=== PATIENT | male | born 1980 | race Two or more races ===

== ENCOUNTER 2023-02-01 10:45 | Inpatient (IN) | payer MEDICAID, OTHER ==
[~2023-02-01] VITALS: Ht 175.3 cm; Wt 200.0 kg
[2023-02-01 11:24] LABS: Hematocrit 43.4 % (41.0-53.0); Hemoglobin 13.8 g/dL (13.5-17.5); Mean Corpuscular Hemoglobin 29.5 pg (28.0-32.0); Mean Corpuscular Hgb Conc. 31.7 g/dL (32.0-36.0); Mean Corpuscular Volume 93.3 fL (80.0-100.0); Red Blood Cells 4.66 10^6/uL (4.5-5.90); Red Cell Distribution Width 16.2 % (11.8-14.3); White Blood Cell 16.9 10^3/uL (4.4-10.8)
[2023-02-01 12:08] LABS: Albumin 2.8 g/dL (3.4-5.0); Calcium 8.2 mg/dL (8.5-10.1); Potassium 4.6 mmol/L (3.5-5.1)
[2023-02-01 12:09] LABS: Basophils % (manual) 0 (0.0-2.0); Blast Cells 0; Eosinophils % (manual) 0 (0-7); Metamyelocytes % 0; Myelocytes % 0; Promyelocytes % 0; Reactive Lymphocytes 0
[2023-02-01 12:12] LABS: BUN/Creatinine Ratio 31.4 (10.0-20.0); Bilirubin, Total 0.2 mg/dL (0.2-1.0); Total Protein 6.4 g/dL (6.4-8.2)
[2023-02-01] MEDS ORDERED: FUROSEMIDE 100 MG/10ML VIAL IV ONE (12:15)
[2023-02-01 12:35] LABS: Band Neutrophils % (manual) 2; Lymphocytes % (manual) 22 (10.0-50.0); Monocytes % (manual) 4 (0-12)
[2023-02-01 13:00] LABS: Urine Bacteria NONE SEEN /hpf (None Seen); Urine Blood Negative /uL (Negative); Urine WBC <1 /hpf (0 - 3)
[2023-02-01] MEDS ORDERED: LORazepam 2MG/ML-1ML VIAL IV PRN (14:45)
[2023-02-01 16:52] VITALS: BP 171/80
[2023-02-01] MEDS: FUROSEMIDE 20 MG/2 ML VIAL IV SCH (18:00)
[2023-02-01] MEDS: ALBUTEROL SULF 2.5 MG/0.5ML(0.5%) NEB SOLN NEB SCH ×2 (18:21→22:00)
[2023-02-01] MEDS: IPRATROPIUM BROM 0.5 MG/2.5ML INH SOL NEB SCH ×2 (18:21→22:00)
[2023-02-01] MEDS ORDERED: LORA-1123 PO (18:33)
[2023-02-01] MEDS ORDERED: METO25TA93 PO (18:33)
[2023-02-01] MEDS ORDERED: FLUO-125 PO (18:33)
[2023-02-01] MEDS ORDERED: KEP500T PO (18:33)
[2023-02-01] MEDS ORDERED: DIVA250T12 PO (18:33)
[2023-02-01] MEDS ORDERED: FURO40TA4 PO (18:33)
[2023-02-01] MEDS ORDERED: LEV100T PO (18:33)
[2023-02-01] MEDS ORDERED: QUET50TA27 PO (18:46)
[2023-02-01] MEDS ORDERED: PRED20TA2 PO ×2 (18:46→19:02)
[2023-02-01] MEDS ORDERED: TOPI50TA53 PO (18:48)
[2023-02-01] MEDS ORDERED: TRAZ-227 PO (18:49)
[2023-02-01] MEDS ORDERED: QUET100T47 PO (18:54)
[2023-02-01] MEDS ORDERED: LEVO88TA4 PO (19:03)
[2023-02-01] MEDS: ATORVASTATIN 20 MG TAB PO SCH (22:09)
[2023-02-01] MEDS: METOPROLOL TARTRATE 25 MG TAB PO SCH (22:10)
[2023-02-01 23:00] VITALS: BP 119/59
[2023-02-02] VITALS (7 sets, daily range): BP systolic 96–123; BP diastolic 58–82
[2023-02-02] MEDS: ALBUTEROL SULF 2.5 MG/0.5ML(0.5%) NEB SOLN NEB SCH ×6 (02:00→21:37)
[2023-02-02] MEDS: IPRATROPIUM BROM 0.5 MG/2.5ML INH SOL NEB SCH ×6 (02:00→21:37)
[2023-02-02] MEDS: FUROSEMIDE 20 MG/2 ML VIAL IV SCH ×2 (06:04→17:43)
[2023-02-02 06:24] LABS: Albumin 2.7 g/dL (3.4-5.0); Calcium 8.4 mg/dL (8.5-10.1); Potassium 4.2 mmol/L (3.5-5.1)
[2023-02-02 06:25] LABS: BUN/Creatinine Ratio 31.8 (10.0-20.0)
[2023-02-02 06:29] LABS: Bilirubin, Total 0.4 mg/dL (0.2-1.0); Total Protein 6.8 g/dL (6.4-8.2)
[2023-02-02 06:50] LABS: Hematocrit 42.9 % (41.0-53.0); Hemoglobin 13.5 g/dL (13.5-17.5); Mean Corpuscular Hemoglobin 29.2 pg (28.0-32.0); Mean Corpuscular Hgb Conc. 31.4 g/dL (32.0-36.0); Red Blood Cells 4.61 10^6/uL (4.5-5.90); Red Cell Distribution Width 16.3 % (11.8-14.3); White Blood Cell 20.8 10^3/uL (4.4-10.8)
[2023-02-02 07:09] LABS: Basophils % (manual) 0 (0.0-2.0); Blast Cells 0; Eosinophils % (manual) 0 (0-7); Myelocytes % 0; Promyelocytes % 0
[2023-02-02 08:38] LABS: Band Neutrophils % (manual) 5; Lymphocytes % (manual) 19 (10.0-50.0); Metamyelocytes % 1; Monocytes % (manual) 5 (0-12); Reactive Lymphocytes 3
[2023-02-02] MEDS: ASPirin 81 mg TAB PO SCH (08:46)
[2023-02-02] MEDS: METOPROLOL TARTRATE 25 MG TAB PO SCH ×2 (08:46→21:36)
[2023-02-02] MEDS ORDERED: OPTISON 3ml Vial for INJ IV ONE (11:00)
[2023-02-02] MEDS: ATORVASTATIN 20 MG TAB PO SCH (21:34)
[2023-02-03] MEDS: ALBUTEROL SULF 2.5 MG/0.5ML(0.5%) NEB SOLN NEB SCH ×6 (01:26→22:15)
[2023-02-03] MEDS: IPRATROPIUM BROM 0.5 MG/2.5ML INH SOL NEB SCH ×6 (01:26→22:15)
[2023-02-03 05:00] VITALS: BP 134/77
[2023-02-03] MEDS: FUROSEMIDE 20 MG/2 ML VIAL IV SCH ×2 (06:13→17:49)
[2023-02-03 06:22] LABS: Calcium 8.8 mg/dL (8.5-10.1); Potassium 3.6 mmol/L (3.5-5.1)
[2023-02-03 06:23] LABS: Hematocrit 41.5 % (41.0-53.0); Hemoglobin 13.4 g/dL (13.5-17.5); Mean Corpuscular Hemoglobin 30.2 pg (28.0-32.0); Mean Corpuscular Hgb Conc. 32.4 g/dL (32.0-36.0); Mean Corpuscular Volume 93.2 fL (80.0-100.0); Red Blood Cells 4.45 10^6/uL (4.5-5.90); Red Cell Distribution Width 16.1 % (11.8-14.3); White Blood Cell 17.8 10^3/uL (4.4-10.8)
[2023-02-03 06:35] LABS: Basophils % (manual) 0 (0.0-2.0); Blast Cells 0; Metamyelocytes % 0; Myelocytes % 0; Promyelocytes % 0
[2023-02-03 06:37] LABS: BUN/Creatinine Ratio 30.4 (10.0-20.0)
[2023-02-03 09:00] VITALS: BP 126/86
[2023-02-03 09:05] LABS: Band Neutrophils % (manual) 4; Eosinophils % (manual) 1 (0-7); Monocytes % (manual) 7 (0-12)
[2023-02-03 09:09] LABS: Lymphocytes % (manual) 19 (10.0-50.0); Reactive Lymphocytes 2
[2023-02-03] MEDS: METOPROLOL TARTRATE 25 MG TAB PO SCH ×2 (10:05→21:11)
[2023-02-03] MEDS: ASPirin 81 mg TAB PO SCH (10:05)
[2023-02-03] MEDS ORDERED: PRED20TA2 PO ×2 (11:14)
[2023-02-03] MEDS ORDERED: LEVO750T8 PO ×2 (11:15)
[2023-02-03 13:10] VITALS: BP 128/80
[2023-02-03 16:43] VITALS: BP 119/76
[2023-02-03] MEDS: ATORVASTATIN 20 MG TAB PO SCH (21:12)
[2023-02-03 22:00] VITALS: BP 129/75
[2023-02-04] VITALS (7 sets, daily range): BP systolic 118–142; BP diastolic 71–91
[2023-02-04] MEDS: ALBUTEROL SULF 2.5 MG/0.5ML(0.5%) NEB SOLN NEB SCH ×6 (02:13→22:15)
[2023-02-04] MEDS: IPRATROPIUM BROM 0.5 MG/2.5ML INH SOL NEB SCH ×6 (02:13→22:15)
[2023-02-04] MEDS: FUROSEMIDE 20 MG/2 ML VIAL IV SCH ×2 (06:21→17:53)
[2023-02-04 06:29] LABS: Hemoglobin 13.3 g/dL (13.5-17.5); Mean Corpuscular Hemoglobin 29.3 pg (28.0-32.0); Mean Corpuscular Hgb Conc. 31.8 g/dL (32.0-36.0); Mean Corpuscular Volume 92.1 fL (80.0-100.0); Red Blood Cells 4.56 10^6/uL (4.5-5.90); Red Cell Distribution Width 16.2 % (11.8-14.3)
[2023-02-04 06:54] LABS: Basophils % (manual) 0 (0.0-2.0); Blast Cells 0; Eosinophils % (manual) 0 (0-7); Metamyelocytes % 0; Promyelocytes % 0; Reactive Lymphocytes 0
[2023-02-04 06:56] LABS: Potassium 3.4 mmol/L (3.5-5.1)
[2023-02-04 07:05] LABS: BUN/Creatinine Ratio 26.1 (10.0-20.0); Calcium 8.7 mg/dL (8.5-10.1)
[2023-02-04 09:00] LABS: Band Neutrophils % (manual) 2; Lymphocytes % (manual) 21 (10.0-50.0); Monocytes % (manual) 7 (0-12); Myelocytes % 1
[2023-02-04] MEDS: METOPROLOL TARTRATE 25 MG TAB PO SCH ×2 (09:32→21:34)
[2023-02-04] MEDS: ASPirin 81 mg TAB PO SCH (09:32)
[2023-02-04 10:13] LABS: Hepatitis C Antibody Negative (Negative)
[2023-02-04] MEDS: ATORVASTATIN 20 MG TAB PO SCH (21:34)
== END 2023-02-04 23:45 | disposition home or self-care (01) | DRG 194 ==
LOC: ER 10:45 → TELE 14:42 → TELE-WESTW 21:29
PROVIDERS: ADMIT Nurse Practitioner Family; ATTEND Internal Medicine Pulmonary Disease
DX: I50.33 Acute on chronic diastolic (congestive) heart failure (principal); J96.21 Acute and chronic respiratory failure with hypoxia; N17.9 Acute kidney failure, unspecified; E44.1 Mild protein-calorie malnutrition; J45.901 Unspecified asthma with (acute) exacerbation; Z68.44 Body mass index [BMI] 60.0-69.9, adult; R56.9 Unspecified convulsions; E66.01 Morbid (severe) obesity due to excess calories; D72.829 Elevated white blood cell count, unspecified; Z79.899 Other long term (current) drug therapy; Z86.16 Personal history of COVID-19; Z88.0 Allergy status to penicillin; Z74.01 Bed confinement status; Z87.01 Personal history of pneumonia (recurrent)
CPT/HCPCS: 36415; 36600; 70450; 71045; 80048; 80053; 80164; 81001; 82805; 83880; 84484; 85007; 85027; 86803; 87340; 93005; 93306; 94640; 96374; G0378; Q9956

== ENCOUNTER 2023-03-02 12:41 | Inpatient (IN) | payer MEDICAID ==
[2023-03-02] VITALS (7 sets, daily range): BP systolic 132–146; BP diastolic 80–107; PULSE 89–102; RESP 15–53; O2SAT 89–94
[~2023-03-02] VITALS: Ht 182.9 cm; Wt 215.1 kg
[~2023-03-02 12:41] MED LIST: DIVA250T12 PO; FLUO-125 PO; FURO40TA4 PO; KEP500T PO; LEVO88TA4 PO; LORA-1123 PO; METO25TA93 PO; QUET100T47 PO; TOPI50TA53 PO; TRAZ-227 PO
[2023-03-02 14:51] LABS: Hematocrit 39.1 % (41.0-53.0); Hemoglobin 12.2 g/dL (13.5-17.5); Mean Corpuscular Hemoglobin 29.7 pg (28.0-32.0); Mean Corpuscular Hgb Conc. 31.1 g/dL (32.0-36.0); Mean Corpuscular Volume 95.3 fL (80.0-100.0); Red Cell Distribution Width 16.1 % (11.8-14.3); White Blood Cell 17.1 10^3/uL (4.4-10.8)
[2023-03-02 14:53] LABS: Basophils % (manual) 0 (0.0-2.0); Blast Cells 0; Eosinophils % (manual) 0 (0-7); Promyelocytes % 0; Reactive Lymphocytes 0
[2023-03-02 15:08] LABS: Albumin 2.6 g/dL (3.4-5.0); Band Neutrophils % (manual) 9; Calcium 8.4 mg/dL (8.5-10.1); Lymphocytes % (manual) 4 (10.0-50.0); Magnesium 2.3 mg/dL (1.6-2.6); Metamyelocytes % 3; Monocytes % (manual) 7 (0-12); Myelocytes % 1; Potassium 4.7 mmol/L (3.5-5.1)
[2023-03-02 15:11] LABS: BUN/Creatinine Ratio 19.5 (10.0-20.0); Bilirubin, Total 0.2 mg/dL (0.2-1.0); Total Protein 6.5 g/dL (6.4-8.2)
[2023-03-02] MEDS ORDERED: FUROSEMIDE 40 MG/4 ML VIAL IV ONE (15:30)
[2023-03-02] MEDS ORDERED: ACETAMINOPHEN 325 MG TAB PO PRN (16:15)
[2023-03-02] MEDS ORDERED: HYDROcodone-ACET 5/325MG TAB PO PRN (16:15)
[2023-03-02] MEDS ORDERED: DOCUSATE SOD 100 MG CAP PO PRN (16:15)
[2023-03-02] MEDS ORDERED: ONDANSETRON HCL 4 MG/2 ML VIAL IV PRN (16:15)
[2023-03-02] MEDS: ALBUTEROL SULF 2.5 MG/0.5ML(0.5%) NEB SOLN NEB SCH (18:16)
[2023-03-02] MEDS: IPRATROPIUM BROM 0.5 MG/2.5ML INH SOL NEB SCH (18:16)
[2023-03-02] MEDS: cefTRIAXone 1GM/50ML D5W 50 ML IV SCH (18:21)
[2023-03-02] MEDS: FUROSEMIDE 40 MG/4 ML VIAL IV SCH (18:21)
[2023-03-02] MEDS: SODIUM CHLOR 0.9% PF (SALINE LOCK) 10ML VIAL/SYR IV SCH (22:10)
[2023-03-03] VITALS (14 sets, daily range): BP systolic 118–144; BP diastolic 61–96; PULSE 85–119; RESP 16–22; TEMP 98.2–98.6; O2SAT 83–99
[2023-03-03] MEDS: IPRATROPIUM BROM 0.5 MG/2.5ML INH SOL NEB SCH ×4 (06:33→19:25)
[2023-03-03] MEDS: ALBUTEROL SULF 2.5 MG/0.5ML(0.5%) NEB SOLN NEB SCH ×4 (06:33→19:25)
[2023-03-03] MEDS: FUROSEMIDE 40 MG/4 ML VIAL IV SCH ×2 (06:41→19:02)
[2023-03-03] MEDS: SODIUM CHLOR 0.9% PF (SALINE LOCK) 10ML VIAL/SYR IV SCH ×3 (06:41→22:00)
[2023-03-03 10:50] LABS: Urine Bacteria NONE SEEN /hpf (None Seen); Urine Blood Negative /uL (Negative); Urine Specific Gravity 1.007 (1.001-1.035); Urine WBC <1 /hpf (0 - 3)
[2023-03-03] MEDS: cefTRIAXone 1GM/50ML D5W 50 ML IV SCH (11:36)
[2023-03-03] MEDS: ENOXAPARIN SOD 40 MG/0.4 ML SYRINGE SC SCH (11:36)
[2023-03-03 13:30] LABS: Albumin 2.6 g/dL (3.4-5.0); Calcium 8.8 mg/dL (8.5-10.1); Potassium 3.7 mmol/L (3.5-5.1)
[2023-03-03 13:31] LABS: Basophils # (auto) 0.1 10 ^3/uL (0-0.2); Basophils % (auto) 0.8 % (0.0-2.0); Eosinophils # (auto) 0.1 10 ^3/uL (0-0.8); Eosinophils % (auto) 0.3 % (0.0-7.0); Hematocrit 39.7 % (41.0-53.0); Hemoglobin 12.6 g/dL (13.5-17.5); Lymphocytes # (auto) 2.9 10 ^3/uL (0.4-5.4); Lymphocytes % (auto) 17.5 % (10.0-50.0); Mean Corpuscular Hemoglobin 29.5 pg (28.0-32.0); Mean Corpuscular Hgb Conc. 31.7 g/dL (32.0-36.0); Monocytes % (auto) 5.9 % (0.0-12.0); Neutrophils # (auto) 12.7 10 ^3/uL (1.6-8.6); Neutrophils % (auto) 75.5 % (37.0-80.0); Nucleated Red Blood Cells % 0.2 %; Red Blood Cells 4.27 10^6/uL (4.5-5.90); Red Cell Distribution Width 16.2 % (11.8-14.3); White Blood Cell 16.8 10^3/uL (4.4-10.8)
[2023-03-03 13:34] LABS: BUN/Creatinine Ratio 18.4 (10.0-20.0); Bilirubin, Total 0.4 mg/dL (0.2-1.0); Total Protein 7.2 g/dL (6.4-8.2)
[2023-03-03] MEDS ORDERED: PRED20TA2 PO (22:02)
[2023-03-03] MEDS ORDERED: CLON1TAB PO (22:02)
[2023-03-04] VITALS (13 sets, daily range): BP systolic 106–140; BP diastolic 60–82; PULSE 90–107; RESP 17–20; TEMP 97.9–98.7; O2SAT 92–100
[2023-03-04] MEDS: IPRATROPIUM BROM 0.5 MG/2.5ML INH SOL NEB SCH ×5 (00:49→19:00)
[2023-03-04] MEDS: ALBUTEROL SULF 2.5 MG/0.5ML(0.5%) NEB SOLN NEB SCH ×5 (00:50→19:00)
[2023-03-04] MEDS: SODIUM CHLOR 0.9% PF (SALINE LOCK) 10ML VIAL/SYR IV SCH ×3 (05:52→22:25)
[2023-03-04] MEDS: FUROSEMIDE 40 MG/4 ML VIAL IV SCH ×2 (06:54→18:59)
[2023-03-04] MEDS: cefTRIAXone 1GM/50ML D5W 50 ML IV SCH (09:52)
[2023-03-04] MEDS: ENOXAPARIN SOD 40 MG/0.4 ML SYRINGE SC SCH (09:52)
[2023-03-04] MEDS ORDERED: DIVA500T13 PO (21:05)
[2023-03-04] MEDS ORDERED: DIVA250T12 PO (21:05)
[2023-03-04] MEDS ORDERED: TRAZ-227 PO (21:06)
[2023-03-04] MEDS: FLUoxetine HCL 20 MG CAP PO SCH (23:13)
[2023-03-04] MEDS: traZODone HCL 50 MG TAB PO SCH (23:13)
[2023-03-04] MEDS: levETIRAcetam 500 MG TAB PO SCH (23:13)
[2023-03-04] MEDS: QUEtiapine FUMARATE 100 MG TAB PO SCH (23:13)
[2023-03-04] MEDS: TOPIRAMATE 25 MG TAB PO SCH (23:14)
[2023-03-04] MEDS: clonazePAM 0.5 MG TAB PO SCH (23:14)
[2023-03-05] VITALS (17 sets, daily range): BP systolic 107–134; BP diastolic 56–79; PULSE 88–119; RESP 16–20; TEMP 97.4–98.9; O2SAT 90–100
[2023-03-05] MEDS: FUROSEMIDE 40 MG/4 ML VIAL IV SCH ×2 (06:33→18:39)
[2023-03-05] MEDS: LEVOTHYROXINE SODIUM 88 MCG TAB PO SCH (06:34)
[2023-03-05] MEDS: SODIUM CHLOR 0.9% PF (SALINE LOCK) 10ML VIAL/SYR IV SCH ×3 (06:36→21:55)
[2023-03-05] MEDS: IPRATROPIUM BROM 0.5 MG/2.5ML INH SOL NEB SCH ×4 (07:10→19:29)
[2023-03-05] MEDS: ALBUTEROL SULF 2.5 MG/0.5ML(0.5%) NEB SOLN NEB SCH ×4 (07:10→19:30)
[2023-03-05] MEDS: ENOXAPARIN SOD 40 MG/0.4 ML SYRINGE SC SCH (10:18)
[2023-03-05] MEDS: TOPIRAMATE 25 MG TAB PO SCH ×2 (10:27→21:52)
[2023-03-05] MEDS: levETIRAcetam 500 MG TAB PO SCH ×2 (10:27→21:52)
[2023-03-05] MEDS: clonazePAM 0.5 MG TAB PO SCH ×2 (10:27→21:52)
[2023-03-05] MEDS: METOPROLOL SUCCINATE XL 50 MG TAB PO SCH (10:27)
[2023-03-05] MEDS: cefTRIAXone 1GM/50ML D5W 50 ML IV SCH (10:35)
[2023-03-05] MEDS: FLUoxetine HCL 20 MG CAP PO SCH (21:52)
[2023-03-05] MEDS: QUEtiapine FUMARATE 100 MG TAB PO SCH (21:52)
[2023-03-05] MEDS: traZODone HCL 50 MG TAB PO SCH (21:52)
[2023-03-06] VITALS (15 sets, daily range): BP systolic 111–133; BP diastolic 59–85; PULSE 96–110; RESP 18–21; TEMP 97.9–98.4; O2SAT 90–100
[2023-03-06] MEDS: IPRATROPIUM BROM 0.5 MG/2.5ML INH SOL NEB SCH ×4 (00:35→18:49)
[2023-03-06] MEDS: ALBUTEROL SULF 2.5 MG/0.5ML(0.5%) NEB SOLN NEB SCH ×4 (00:36→18:49)
[2023-03-06] MEDS: LEVOTHYROXINE SODIUM 88 MCG TAB PO SCH (06:38)
[2023-03-06] MEDS: FUROSEMIDE 40 MG/4 ML VIAL IV SCH (06:39)
[2023-03-06] MEDS: SODIUM CHLOR 0.9% PF (SALINE LOCK) 10ML VIAL/SYR IV SCH ×3 (06:41→21:32)
[2023-03-06 07:06] LABS: Basophils # (auto) 0.1 10 ^3/uL (0-0.2); Basophils % (auto) 0.8 % (0.0-2.0); Eosinophils # (auto) 0.3 10 ^3/uL (0-0.8); Hematocrit 38.3 % (41.0-53.0); Hemoglobin 12.2 g/dL (13.5-17.5); Lymphocytes # (auto) 2.8 10 ^3/uL (0.4-5.4); Lymphocytes % (auto) 22.4 % (10.0-50.0); Mean Corpuscular Hemoglobin 29.9 pg (28.0-32.0); Mean Corpuscular Hgb Conc. 31.9 g/dL (32.0-36.0); Mean Corpuscular Volume 93.8 fL (80.0-100.0); Monocytes # (auto) 0.9 10 ^3/uL (0-1.3); Monocytes % (auto) 7.6 % (0.0-12.0); Neutrophils # (auto) 8.4 10 ^3/uL (1.6-8.6); Neutrophils % (auto) 67.2 % (37.0-80.0); Nucleated Red Blood Cells % 0.2 %; Red Blood Cells 4.08 10^6/uL (4.5-5.90); Red Cell Distribution Width 15.9 % (11.8-14.3); White Blood Cell 12.5 10^3/uL (4.4-10.8)
[2023-03-06 07:21] LABS: Albumin 2.4 g/dL (3.4-5.0); Calcium 8.3 mg/dL (8.5-10.1)
[2023-03-06 07:24] LABS: BUN/Creatinine Ratio 10.6 (10.0-20.0); Bilirubin, Total 0.3 mg/dL (0.2-1.0); Total Protein 7.1 g/dL (6.4-8.2)
[2023-03-06 07:28] LABS: Potassium 2.6 mmol/L (3.5-5.1)
[2023-03-06] MEDS: cefTRIAXone 1GM/50ML D5W 50 ML IV SCH (09:43)
[2023-03-06] MEDS: clonazePAM 0.5 MG TAB PO SCH ×2 (09:57→21:33)
[2023-03-06] MEDS: TOPIRAMATE 25 MG TAB PO SCH ×2 (09:57→21:34)
[2023-03-06] MEDS: levETIRAcetam 500 MG TAB PO SCH ×2 (09:57→21:34)
[2023-03-06] MEDS: ENOXAPARIN SOD 40 MG/0.4 ML SYRINGE SC SCH (09:58)
[2023-03-06] MEDS: METOPROLOL SUCCINATE XL 50 MG TAB PO SCH (09:59)
[2023-03-06] MEDS ORDERED: POTASSIUM CHLORIDE 40 MEQ, LIDOCAINE 1% (LOCAL ANESTH.) 4 ML in SODIUM CHL 0.9% 250 ML IV ONE (10:00)
[2023-03-06] MEDS ORDERED: POTASSIUM EFFERVESENT TAB 25 MEQ PO ONE ×2 (10:00→13:30)
[2023-03-06] MEDS ORDERED: METOPROLOL SUCCINATE XL 50 MG TAB PO ONE (10:15)
[2023-03-06] MEDS: AZITHROMYCIN 250 MG TAB PO SCH (13:36)
[2023-03-06] MEDS: QUEtiapine FUMARATE 100 MG TAB PO SCH (21:32)
[2023-03-06] MEDS: FLUoxetine HCL 20 MG CAP PO SCH (21:33)
[2023-03-06] MEDS: traZODone HCL 50 MG TAB PO SCH (21:34)
[2023-03-07] VITALS (14 sets, daily range): BP systolic 90–113; BP diastolic 54–79; PULSE 67–95; RESP 18–23; TEMP 97.5–98.3; O2SAT 91–100
[2023-03-07] MEDS: IPRATROPIUM BROM 0.5 MG/2.5ML INH SOL NEB SCH ×4 (00:40→19:10)
[2023-03-07] MEDS: ALBUTEROL SULF 2.5 MG/0.5ML(0.5%) NEB SOLN NEB SCH ×4 (00:40→19:10)
[2023-03-07] MEDS: SODIUM CHLOR 0.9% PF (SALINE LOCK) 10ML VIAL/SYR IV SCH ×3 (06:19→21:16)
[2023-03-07] MEDS: LEVOTHYROXINE SODIUM 88 MCG TAB PO SCH (06:31)
[2023-03-07] MEDS: ENOXAPARIN SOD 40 MG/0.4 ML SYRINGE SC SCH (09:49)
[2023-03-07] MEDS: METOPROLOL SUCCINATE XL 50 MG TAB PO SCH (09:50)
[2023-03-07] MEDS: AZITHROMYCIN 250 MG TAB PO SCH (09:51)
[2023-03-07] MEDS: clonazePAM 0.5 MG TAB PO SCH ×2 (09:51→21:37)
[2023-03-07] MEDS: TOPIRAMATE 25 MG TAB PO SCH ×2 (09:51→21:38)
[2023-03-07] MEDS: FUROSEMIDE 40 MG/4 ML VIAL IV SCH (09:52)
[2023-03-07] MEDS: cefTRIAXone 1GM/50ML D5W 50 ML IV SCH (09:52)
[2023-03-07] MEDS: levETIRAcetam 500 MG TAB PO SCH ×2 (09:52→21:37)
[2023-03-07 13:24] LABS: Basophils # (auto) 0.1 10 ^3/uL (0-0.2); Basophils % (auto) 1.3 % (0.0-2.0); Eosinophils # (auto) 0.2 10 ^3/uL (0-0.8); Eosinophils % (auto) 1.7 % (0.0-7.0); Hematocrit 38.8 % (41.0-53.0); Hemoglobin 12.2 g/dL (13.5-17.5); Lymphocytes # (auto) 1.9 10 ^3/uL (0.4-5.4); Lymphocytes % (auto) 17.1 % (10.0-50.0); Mean Corpuscular Hemoglobin 29.6 pg (28.0-32.0); Mean Corpuscular Hgb Conc. 31.5 g/dL (32.0-36.0); Mean Corpuscular Volume 94.1 fL (80.0-100.0); Monocytes % (auto) 8.6 % (0.0-12.0); Neutrophils # (auto) 8.1 10 ^3/uL (1.6-8.6); Neutrophils % (auto) 71.3 % (37.0-80.0); Red Blood Cells 4.12 10^6/uL (4.5-5.90); Red Cell Distribution Width 16.5 % (11.8-14.3); White Blood Cell 11.4 10^3/uL (4.4-10.8)
[2023-03-07 14:27] LABS: Calcium 8.5 mg/dL (8.5-10.1)
[2023-03-07 14:29] LABS: BUN/Creatinine Ratio 9.1 (10.0-20.0)
[2023-03-07 14:32] LABS: Potassium 2.9 mmol/L (3.5-5.1)
[2023-03-07] MEDS ORDERED: POTASSIUM CHLORIDE 40 MEQ, LIDOCAINE 1% (LOCAL ANESTH.) 4 ML in SODIUM CHL 0.9% 250 ML IV ONE (14:45)
[2023-03-07] MEDS ORDERED: POTASSIUM EFFERVESENT TAB 25 MEQ PO ONE (14:45)
[2023-03-07] MEDS: traZODone HCL 50 MG TAB PO SCH (21:37)
[2023-03-07] MEDS: FLUoxetine HCL 20 MG CAP PO SCH (21:38)
[2023-03-07] MEDS: QUEtiapine FUMARATE 100 MG TAB PO SCH (21:39)
[2023-03-07] MEDS: NYSTATIN TOPICAL POWDER 15GM TOP SCH (22:00)
[2023-03-08] VITALS (12 sets, daily range): BP systolic 54–110; BP diastolic 43–65; PULSE 101–107; RESP 18–24; TEMP 97.4–98.3; O2SAT 92–99
[2023-03-08] MEDS: SODIUM CHLOR 0.9% PF (SALINE LOCK) 10ML VIAL/SYR IV SCH ×3 (06:22→21:43)
[2023-03-08] MEDS: LEVOTHYROXINE SODIUM 88 MCG TAB PO SCH (06:31)
[2023-03-08] MEDS: ALBUTEROL SULF 2.5 MG/0.5ML(0.5%) NEB SOLN NEB SCH ×4 (06:45→19:11)
[2023-03-08] MEDS: IPRATROPIUM BROM 0.5 MG/2.5ML INH SOL NEB SCH ×4 (06:45→19:11)
[2023-03-08] MEDS: cefTRIAXone 1GM/50ML D5W 50 ML IV SCH (09:06)
[2023-03-08] MEDS: TOPIRAMATE 25 MG TAB PO SCH ×2 (09:07→21:33)
[2023-03-08] MEDS: ENOXAPARIN SOD 40 MG/0.4 ML SYRINGE SC SCH (09:07)
[2023-03-08] MEDS: levETIRAcetam 500 MG TAB PO SCH ×2 (09:07→21:33)
[2023-03-08] MEDS: clonazePAM 0.5 MG TAB PO SCH ×2 (09:07→21:32)
[2023-03-08] MEDS: AZITHROMYCIN 250 MG TAB PO SCH (09:08)
[2023-03-08] MEDS: METOPROLOL SUCCINATE XL 50 MG TAB PO SCH (10:00)
[2023-03-08] MEDS: NYSTATIN TOPICAL POWDER 15GM TOP SCH ×2 (10:00→21:43)
[2023-03-08] MEDS: FUROSEMIDE 40 MG/4 ML VIAL IV SCH (10:00)
[2023-03-08] MEDS ORDERED: POTASSIUM EFFERVESENT TAB 25 MEQ PO ONE (14:00)
[2023-03-08] MEDS: QUEtiapine FUMARATE 100 MG TAB PO SCH (21:32)
[2023-03-08] MEDS: FLUoxetine HCL 20 MG CAP PO SCH (21:33)
[2023-03-08] MEDS: traZODone HCL 50 MG TAB PO SCH (21:39)
[2023-03-08] MEDS ORDERED: ENOXAPARIN SOD 40 MG/0.4 ML SYRINGE SC SCH (22:00)
[2023-03-09] MEDS ORDERED: TOPIRAMATE 25 MG TAB PO SCH (06:00)
== END 2023-03-08 23:34 | DRG 720 ==
LOC: EDBD 12:41 → ER 12:41 → TELE 16:05 → TELE-CENTR 03-03 14:15 → TELE-WESTW 03-03 17:37
PROVIDERS: ADMIT Nurse Practitioner Acute Care; ATTEND Nurse Practitioner Acute Care
PROC: 5A09357 Assistance with Respiratory Ventilation, Less than 24 Consecutive Hours, Continuous Positive Airway Pressure (ICD-10-PCS; principal; 2023-03-02)
PROC: 5A09357 Assistance with Respiratory Ventilation, Less than 24 Consecutive Hours, Continuous Positive Airway Pressure (ICD-10-PCS; 2023-03-05)
PROC: 5A09357 Assistance with Respiratory Ventilation, Less than 24 Consecutive Hours, Continuous Positive Airway Pressure (ICD-10-PCS; 2023-03-06)
DX: A41.9 Sepsis, unspecified organism (principal); J96.21 Acute and chronic respiratory failure with hypoxia; I50.33 Acute on chronic diastolic (congestive) heart failure; J15.6 Pneumonia due to other Gram-negative bacteria; J15.9 Unspecified bacterial pneumonia; E88.09 Other disorders of plasma-protein metabolism, not elsewhere classified; G40.409 Other generalized epilepsy and epileptic syndromes, not intractable, without status epilepticus; I13.0 Hypertensive heart and chronic kidney disease with heart failure and stage 1 through stage 4 chronic kidney disease, or unspecified chronic kidney disease; J44.0 Chronic obstructive pulmonary disease with (acute) lower respiratory infection; J44.1 Chronic obstructive pulmonary disease with (acute) exacerbation; J45.901 Unspecified asthma with (acute) exacerbation; Z68.44 Body mass index [BMI] 60.0-69.9, adult; E66.01 Morbid (severe) obesity due to excess calories; J96.22 Acute and chronic respiratory failure with hypercapnia; G43.909 Migraine, unspecified, not intractable, without status migrainosus; E78.5 Hyperlipidemia, unspecified; J98.11 Atelectasis; L30.9 Dermatitis, unspecified; N18.9 Chronic kidney disease, unspecified; Z79.899 Other long term (current) drug therapy; Z82.0 Family history of epilepsy and other diseases of the nervous system; Z82.3 Family history of stroke; Z83.3 Family history of diabetes mellitus; Z86.16 Personal history of COVID-19; Z88.0 Allergy status to penicillin; Z91.040 Latex allergy status
CPT/HCPCS: 36415; 36600; 71045; 80048; 80053; 81001; 82805; 82962; 83605; 83735; 83880; 84132; 84443; 84484; 85007; 85025; 85027; 85379; 85652; 86141; 87040; 87077; 87186; 93005; 93970; 94640; 94660; 97110; 97116; 97163; 97530; G0378; J0696; J2001; J2405